=== PATIENT | female | born 1995 | race Caucasian/White ===

== ENCOUNTER 2016-11-14 20:21 | Emergency (ER) | payer OTHER | END 2016-11-14 20:53 | disposition home or self-care (01) | LOC: ER 20:21 | DX: K04.7 Periapical abscess without sinus (principal); S02.5XXA Fracture of tooth (traumatic), initial encounter for closed fracture; Z79.02 Long term (current) use of antithrombotics/antiplatelets | CPT/HCPCS: 96372; 99282-25 ==

== ENCOUNTER 2016-12-31 13:31 | Emergency (ER) | payer OTHER | END 2016-12-31 17:15 | disposition left against medical advice (07) | LOC: ER 13:31 | DX: Z53.21 Procedure and treatment not carried out due to patient leaving prior to being seen by health care provider (principal) | CPT/HCPCS: 99211 ==